=== PATIENT | female | born 1975 | race African-American/Black ===

== ENCOUNTER 2016-11-28 05:30 | Day surgery (SDC) | payer BC ==
[2016-11-22 18:57] VITALS: BMI 26.2
--- NOTE | 2016-11-28 14:17 | HP ---
Satellite [facility] - Chief Complaint History of Present Illness: 41 year old woman with renal failure who will need dialysis soon. She wishes to do peritoneal dialysis. She is right handed. History Source: Patient Limitations to Obtaining History: No Limitations - Past Medical History Allergies/Adverse Reactions: Allergies Allergy/AdvReac Type Severity Reaction Status Date / Time No Known Allergies Allergy Verified 11/28/16 13:38 Cardiovascular: Yes: HTN ...LMP: 10/18/16 Endocrine: Yes: Diabetes Mellitus - Current Medications Current Medications: Home Medications Medication Instructions Recorded Amlodipine Besylate 10 mg PO DAILY 11/22/16 Atorvastatin Ca [Lipitor] 20 mg PO HS 11/22/16 Cholecalciferol (Vitamin D3) 5,000 unit PO DAILY 11/22/16 [Vitamin D3] Doxazosin Mesylate [Cardura] 4 mg PO HS 11/22/16 Epoetin Etienne [Procrit] 20,000 unit IJ ASDIR 11/22/16 Furosemide [Lasix -] 40 mg PO BID 11/22/16 Insulin (Novolog) [Novolog Flexpen] 0 units SQ AC 11/22/16 Insulin Glargine,Hum.rec.anlog 25 units SQ HS 11/22/16 [Lantus Solostar PEN (NF)] Iron/C/Folate 6/B12/Zn/Stomach 1 each PO BID 11/22/16 [Chromagen Softgel] Metoprolol Succinate [Toprol Xl -] 50 mg PO DAILY 11/22/16 Satellite Physical Exam - Physical Examination Vital Signs: Vital Signs Period Temp Pulse Resp BP Sys/Oliver Pulse Ox Last 24 Hr 98.2 F 85 18 145/84 100 General Appearance: Well Developed ENT: Clear Lung: Clear to auscultation Heart: Regular rate & rhythm Abdomen: Soft, No tenderness Extremities: No edema Satellite Impression/Plan - Impression/Plan Impression: CKD 5. DM, HTN Operative Procedure: Laparoscopic placement peritoneal dialysis catheter. Date to be Performed: 11/28/16
[2016-11-28] MEDS ORDERED: SUCCINYLCHOLINE CHLORIDE 200 MG/10 ML VIAL ONE (14:25)
[2016-11-28] MEDS ORDERED: PROPOFOL 20 ML ONE (14:25)
[2016-11-28] MEDS ORDERED: MIDAZOLAM HCL 2 MG/2 ML SINGLE DOSE VIAL ONE (14:26)
[2016-11-28] MEDS ORDERED: ROCURONIUM BROMIDE 50 MG/5 ML VIAL ONE (14:26)
[2016-11-28] MEDS ORDERED: LIDOCAINE HCL/PF 2% SDV 5ML VIAL ONE (14:27)
[2016-11-28] MEDS ORDERED: ceFAZolin SODIUM 1 GM VIAL IVPB ONE (14:55)
[2016-11-28] MEDS ORDERED: ceFAZolin SODIUM 1 GM VIAL ONE (14:55)
[2016-11-28] MEDS ORDERED: DEXAMETHASONE SOD PHOSPHATE 4 MG/1 ML VIAL ONE (14:58)
[2016-11-28] MEDS ORDERED: BUPIVACAINE HCL/PF 0.5% (5MG/ML) 10 ML VIAL IJ ONE (15:02)
[2016-11-28] MEDS ORDERED: GLYCOPYRROLATE 0.2 MG/1 ML VIAL ONE (15:32)
[2016-11-28] MEDS ORDERED: NEOSTIGMINE METHYLSULFATE 0.5 MG/ML - 10 ML MDV ONE (15:33)
--- NOTE | 2016-11-28 15:45 | OP ---
Operative Note - Note: Operative Date: 11/28/16 Pre-Operative Diagnosis: Renal failure Operation: Laparoscopic placement of peritoneal dialysis catheter Findings: No intra-abdominal adhesions. Post-Operative Diagnosis: Same as Pre-op Surgeon: Alfred Campo Anesthesiologist/SMOKE ROOM OPERATOR: Rios Renee Anesthesia: General Drains & Tubes with Location: Double cuff Tenckhoff catheter
[2016-11-28] MEDS ORDERED: ACETAMINOPHEN 325 MG TABLET (FP) PO PRN ×2 (15:46→15:54)
[2016-11-28] MEDS ORDERED: oxyCODONE HCL 5 MG TABLET PO PRN (15:46)
[2016-11-28] MEDS ORDERED: PROMETHAZINE HCL 25 MG/1 ML VIAL IVPUSH PRN (15:54)
[2016-11-28 17:31] VITALS: BP 143/84; PULSE 78; TEMP 98.5
--- NOTE | 2016-12-01 09:54 | OP ---
DATE OF OPERATION: 11/28/2016 SURGEON: Alfred Campo MD PROCEDURE: Laparoscopic placement of peritoneal dialysis catheter. PREOPERATIVE DIAGNOSIS: Chronic renal failure. POSTOPERATIVE DIAGNOSIS: Chronic renal failure. ANESTHESIA: General. ANESTHESIOLOGIST: Rios Renee MD OPERATIVE FINDINGS: There were no intraabdominal adhesions. There was no excessive omentum. DESCRIPTION OF OPERATIVE PROCEDURE: Following routine patient identification, general anesthesia was induced. The abdomen was prepped with ChloraPrep. Timeout was performed. Marcaine 0.5% was infiltrated in the midline above the umbilicus, and a small skin incision made. The peritoneal cavity was then entered with a Visiport 5 mm under direct laparoscopic visualization. Pneumoperitoneum was established with carbon dioxide with 15 mmHg pressure. A 5-mm angled laparoscope was used to explore the abdomen. Additional Marcaine was infiltrated on the abdominal wall to the right of the umbilicus and a skin incision made. An 8-mm blunt bladeless trocar was advanced until the tip was seen on top of the peritoneum. It was then directed towards the pelvis and punctured the peritoneum above the true pelvis. A swan-neck double-cuff Tenckhoff catheter was then advanced with a delivery specialist through the 8-mm port and positioned in the pelvis. The port was removed, leaving the inner cuff just above the fascia. The end of the catheter was attached to a curved tunneler which was passed in the subcutaneous plane, to exit in the right lower quadrant abdominal wall at the predetermined site. The Luer lock adapter was attached to the catheter, and pneumoperitoneum was evacuated. One liter of saline was then run into the peritoneal cavity in under 3-1/2 minutes. The fluid was then drained, leaving approximately 300 mL within the peritoneal cavity. The catheter was capped, and the skin incisions were closed with sutures of 3-0 Vicryl and 4-0 Biosyn. Dermabond glue was applied, and the catheter was securely taped to the skin and covered with an ABD pad. The patient was then awakened from anesthesia and taken to the recovery room. Delores [id number]
== END 2016-11-28 17:30 | disposition home or self-care (01) ==
LOC: JASU-SURG 05:30
PROVIDERS: ATTEND Surgery
PROC: 0WHG43Z Insertion of Infusion Device into Peritoneal Cavity, Percutaneous Endoscopic Approach (ICD-10-PCS; principal; 2016-11-28 14:00)
DX: I12.0 Hypertensive chronic kidney disease with stage 5 chronic kidney disease or end stage renal disease (principal)
CPT/HCPCS: 84703; 94760

== ENCOUNTER 2021-10-11 04:19 | Day surgery (SDC) | payer BC ==
[2021-10-06 14:49] VITALS: BMI 28.7
[2021-10-11] MEDS ORDERED: PROMETHAZINE HCL 25 MG/1 ML VIAL IVPUSH PRN (10:57)
[2021-10-11] MEDS ORDERED: ONDANSETRON 4 MG/2 ML VIAL IVPUSH PRN (10:57)
[2021-10-11] MEDS ORDERED: oxyCODONE HCL 5 MG TABLET PO PRN (10:57)
[2021-10-11] MEDS ORDERED: LACTATED RINGERS SOLUTION 1,000 ML IV SCH (11:00)
[2021-10-11] MEDS ORDERED: ROCURONIUM BROMIDE 50 MG/5 ML SYRINGE ONE (11:20)
[2021-10-11] MEDS ORDERED: MIDAZOLAM HCL 2 MG/2 ML SINGLE DOSE VIAL ONE ×2 (11:20→13:30)
[2021-10-11] MEDS ORDERED: PROPOFOL 20 ML ONE ×2 (11:20→13:06)
[2021-10-11] MEDS ORDERED: FENTANYL CITRATE/PF 50 MCG/ML VIAL ONE ×3 (11:20→13:29)
[2021-10-11] MEDS ORDERED: LIDOCAINE HCL 2% 100 MG/5 ML DISP.SYRIN ONE (11:21)
[2021-10-11] MEDS ORDERED: SODIUM CHLORIDE 0.9% P/F 10 ML VIAL IJ ONE (11:41)
[2021-10-11] MEDS ORDERED: ceFAZolin SODIUM 1 GM VIAL ONE (11:41)
[2021-10-11] MEDS ORDERED: ceFAZolin SODIUM 1 GM VIAL IVPB ONE (11:43)
[2021-10-11] MEDS ORDERED: DEXAMETHASONE SOD PHOSPHATE 4 MG/1 ML VIAL ONE (11:48)
[2021-10-11] MEDS ORDERED: BUPIVACAINE HCL/PF 0.5% (5MG/ML) 10 ML VIAL IJ ONE ×4 (11:49→12:01)
[2021-10-11] MEDS ORDERED: NEOSTIGMINE METHYLSULFATE 0.5 MG/ML - 10 ML MDV ONE (12:58)
[2021-10-11] MEDS ORDERED: GLYCOPYRROLATE 0.2 MG/1 ML VIAL ONE (12:58)
[2021-10-11] MEDS ORDERED: ACETAMINOPHEN 1000 MG/100 ML BAG IVPB ONE (14:00)
[2021-10-11] MEDS ORDERED: ACETAMINOPHEN INJECTION 100 ML IVPB ONE (16:15)
[2021-10-11 16:29] VITALS: TEMP 97.8
[2021-10-11 17:19] VITALS: PULSE 68
[2021-10-11 18:30] VITALS: BP 129/72
== END 2021-10-11 18:25 | disposition home or self-care (01) ==
LOC: JASU-SURG 04:19
PROVIDERS: ATTEND Surgery
PROC: 0WUF4JZ Supplement Abdominal Wall with Synthetic Substitute, Percutaneous Endoscopic Approach (ICD-10-PCS; 2021-10-11)
PROC: 0WHG43Z Insertion of Infusion Device into Peritoneal Cavity, Percutaneous Endoscopic Approach (ICD-10-PCS; principal; 2021-10-11 10:30)
DX: I12.0 Hypertensive chronic kidney disease with stage 5 chronic kidney disease or end stage renal disease (principal); N18.6 End stage renal disease; Z99.2 Dependence on renal dialysis; K43.9 Ventral hernia without obstruction or gangrene; Z94.0 Kidney transplant status
CPT/HCPCS: 81025; 82962; 94760

== ENCOUNTER 2022-11-28 05:37 | Day surgery (SDC) | payer BC ==
[2022-11-27 15:56] VITALS: BMI 24.8
[2022-11-28] MEDS ORDERED: AMPICILLIN SODIUM 250 MG VIAL IVPUSH ONE (10:22)
[2022-11-28] MEDS ORDERED: GENTAMICIN INJECTION 100 MG in SODIUM CHLORIDE 97.5 ML IVPB ONE (10:23)
[2022-11-28] MEDS ORDERED: AMPICILLIN - 1 GM in SODIUM CHLORIDE 100 ML IVPB ONE (10:30)
[2022-11-28 13:24] VITALS: TEMP 97.4
[2022-11-28 13:59] VITALS: BP 174/73; PULSE 88; RESP 18
== END 2022-11-28 14:41 | disposition home or self-care (01) ==
LOC: JASU-ENDO 05:37
PROVIDERS: ATTEND Student in an Organized Health Care Education/Training Program
PROC: 0DBN8ZX Excision of Sigmoid Colon, Via Natural or Artificial Opening Endoscopic, Diagnostic (ICD-10-PCS; 2022-11-28)
PROC: 0DBP8ZX Excision of Rectum, Via Natural or Artificial Opening Endoscopic, Diagnostic (ICD-10-PCS; 2022-11-28)
PROC: 0DBK8ZX Excision of Ascending Colon, Via Natural or Artificial Opening Endoscopic, Diagnostic (ICD-10-PCS; principal; 2022-11-28 11:30)
DX: Z12.11 Encounter for screening for malignant neoplasm of colon (principal); K52.9 Noninfective gastroenteritis and colitis, unspecified